=== PATIENT | male | born 1980 | race Caucasian/White ===

== ENCOUNTER 2016-09-11 13:16 | Emergency (ER) | payer SELFPAY ==
[2016-09-11 13:23] VITALS: BP 123/89
[2016-09-11] MEDS ORDERED: EPINEPHRINE INJ/PF 1 MG/1 ML AMPULE SUBCUT PRN (13:26)
[2016-09-11] MEDS ORDERED: FAMOTIDINE 20 MG TABLET PO ONE (13:27)
[2016-09-11] MEDS ORDERED: DIPHENHYDRAMINE HCL 50 MG CAPSULE PO ONE (13:27)
--- NOTE | 2016-09-11 13:31 | ER Document Report ---
ED Medical Screen (RME) - General Chief Complaint: Allergic Reaction Stated Complaint: POSSIBLE ALLERGIC REACTION TO BEES Notes: This 36-year-old male patient reports being stung several times by yellow jackets or wasps about 45 minutes prior to arrival. He is complaining of itching all over with red rash. There is no shortness of breath. He took a Vicodin for his back pain shortly before he was stung. I have greeted and performed a rapid initial assessment of this patient. A comprehensive ED assessment and evaluation of the patient, analysis of test results and completion of the medical decision making process will be conducted by additional ED providers. TRAVEL OUTSIDE OF THE [place] IN LAST 30 DAYS: No - Related Data Allergies/Adverse Reactions: No Known Allergies Allergy (Verified 09/11/16 13:19) Home Medications: Current Home Medications No Home Medications 09/11/16 [History] Past Medical History Renal/ Medical History: Denies: Hx Peritoneal Dialysis Skin Medical History: Reports Hx Eczema - Immunizations Hx Diphtheria, Pertussis, Tetanus Vaccination: No Physical Exam - Vital signs Vitals: Temp Pulse Resp BP Pulse Ox 97.6 F 80 16 123/89 H 100 09/11/16 13:19 09/11/16 13:19 09/11/16 13:19 09/11/16 13:19 09/11/16 13:19 Course - Vital Signs Vital signs: Temp Pulse Resp BP Pulse Ox 97.6 F 80 16 123/89 H 100 09/11/16 13:19 09/11/16 13:19 09/11/16 13:19 09/11/16 13:19 09/11/16 13:19 Doctor's Discharge - Discharge Clinical Impression: Allergic reaction to bee sting Condition: Stable Disposition: HOME, SELF-CARE Additional Instructions: Acute Allergic Reaction: Your symptoms are due to an allergic reaction. Allergy can cause hives, swelling of the hands, feet, and face, hoarseness, and difficulty swallowing or breathing. It may be due to exposure to medication, animal dander, foods, infection, or insect bites. Medication is a common cause, even when prior use of this same medication caused no problems. Acute treatment may include adrenalin and antihistamines. Usually, the specific allergic agent can't be identified unless repeated episodes occur. Home treatment includes the following: (1) Stop any suspicious medications. This will be discussed with you. (2) Oral antihistamines for the next four to five days. Example, diphenhydramine (Benadryl) every four hours. (3) You may also use cimetidine (Tagamet), ranitidine (Zantac), or famotidine (Pepcid) every four hours if diphenhydramine is not controlling itching and hives. (4) Avoid aspirin until the hives completely disappear. (5) Avoid hot bahs or showers until the hives are completely gone. Call the doctor if faintness, difficulty swallowing, tightness in the chest, or wheezing occurs.
--- NOTE | 2016-09-11 14:57 | ER Document Report ---
ED Allergic Reaction - General Chief Complaint: Allergic Reaction Stated Complaint: POSSIBLE ALLERGIC REACTION TO BEES Notes: 36-year-old male patient reports being stung several times on the upper extremities by yellow jackets about 45 minutes prior to arrival. He has some closing of the throat and voice is hoarse, he is itching and developing erythematous rash. He does have an EpiPen but has not used it. TRAVEL OUTSIDE OF THE [place] IN LAST 30 DAYS: No - Related Data Allergies/Adverse Reactions: No Known Allergies Allergy (Verified 09/11/16 13:19) Home Medications: Current Home Medications No Home Medications 09/11/16 [History] Past Medical History - General Information source: Patient, [facility] Records - Social History Smoking Status: Current Every Day Smoker Cigarette use (# per day): Yes Chew tobacco use (# tins/day): No Smoking Education Provided: No Frequency of alcohol use: Occasional Occupation: [employer] Lives with: Alone Family History: Reviewed & Not Pertinent Patient has suicidal ideation: No Patient has homicidal ideation: No - Past Medical History Cardiac Medical History: Reports: None Pulmonary Medical History: Reports: None EENT Medical History: Reports: None Neurological Medical History: Reports: None Endocrine Medical History: Reports: None Renal/ Medical History: Reports: None GI Medical History: Reports: None Musculoskeltal Medical History: Reports None Skin Medical History: Reports Hx Eczema Psychiatric Medical History: Reports: None Past Surgical History: Reports: Other - Colonoscopy with polyp removal - Immunizations Hx Diphtheria, Pertussis, Tetanus Vaccination: No Review of Systems - Review of Systems Constitutional: No symptoms reported EENT: No symptoms reported Cardiovascular: No symptoms reported Respiratory: No symptoms reported Gastrointestinal: No symptoms reported Genitourinary: No symptoms reported Musculoskeletal: No symptoms reported Skin: See HPI Hematologic/Lymphatic: No symptoms reported Neurological/Psychological: No symptoms reported Physical Exam - Vital signs Vitals: Temp Pulse Resp BP Pulse Ox 97.6 F 80 16 123/89 H 100 09/11/16 13:19 09/11/16 13:19 09/11/16 13:19 09/11/16 13:19 09/11/16 13:19 Interpretation: Normal - General General appearance: Alert, Anxious In distress: Mild Notes: Voice is a little hoarse. - HEENT Head: Normocephalic, Atraumatic Eyes: Normal Pupils: PERRL - Respiratory Respiratory status: No respiratory distress Breath sounds: Normal - Cardiovascular Rhythm: Regular - Abdominal Inspection: Other - Some urticaria and erythema to the anterior chest and abdomen - Back Back: Normal - Extremities General upper extremity: Other - Some erythema and urticaria to the volar forearms General lower extremity: Normal inspection - Neurological Neuro grossly intact: Yes - Psychological Associated symptoms: Normal affect, Normal mood Course - Vital Signs Vital signs: Temp Pulse Resp BP Pulse Ox 97.6 F 80 16 123/89 H 100 09/11/16 13:19 09/11/16 13:19 09/11/16 13:19 09/11/16 13:19 09/11/16 13:19 Discharge - Discharge Clinical Impression: Allergic reaction to bee sting Condition: Stable Disposition: HOME, SELF-CARE Additional Instructions: Acute Allergic Reaction: Your symptoms are due to an allergic reaction. Allergy can cause hives, swelling of the hands, feet, and face, hoarseness, and difficulty swallowing or breathing. It may be due to exposure to medication, animal dander, foods, infection, or insect bites. Medication is a common cause, even when prior use of this same medication caused no problems. Acute treatment may include adrenalin and antihistamines. Usually, the specific allergic agent can't be identified unless repeated episodes occur. Home treatment includes the following: (1) Stop any suspicious medications. This will be discussed with you. (2) Oral antihistamines for the next four to five days. Example, diphenhydramine (Benadryl) every four hours. (3) You may also use cimetidine (Tagamet), ranitidine (Zantac), or famotidine (Pepcid) every four hours if diphenhydramine is not controlling itching and hives. (4) Avoid aspirin until the hives completely disappear. (5) Avoid hot bahs or showers until the hives are completely gone. Call the doctor if faintness, difficulty swallowing, tightness in the chest, or wheezing occurs.
== END 2016-09-11 15:04 | disposition home or self-care (01) ==
LOC: ER 13:16
DX: T63.461A Toxic effect of venom of wasps, accidental (unintentional), initial encounter (principal); L50.8 Other urticaria; F17.210 Nicotine dependence, cigarettes, uncomplicated
CPT/HCPCS: 99283

== ENCOUNTER 2016-11-25 10:14 | Emergency (ER) | payer SELFPAY ==
[2016-11-25] MEDS ORDERED: OXYCODONE-ACETAMINOPHEN 5-325 MG TABLET PO ONE (11:17)
--- NOTE | 2016-11-25 11:19 | ER Document Report ---
HPI - HPI Patient complains to provider of: r lower back pain Onset: Other - 3 days ago Onset/Duration: Persistent Quality of pain: Achy Pain Level: 4 Context: Patient presents complaining of right lower back pain for the past 3 days. Patient states that he turned over in the bed this morning that aggravated his low back pain. Patient denies any injury. Patient denies any urinary symptoms. Associated Symptoms: Other - Lower back pain Exacerbated by: Movement Relieved by: Denies Similar symptoms previously: Yes Recently seen / treated by doctor: No - ROS ROS below otherwise negative: Yes Systems Reviewed and Negative: Yes All other systems reviewed and negative - CONSTITUTIONAL Constitutional: DENIES: Fever - URINARY Urinary: DENIES: Dysuria, Urgency, Frequency - MUSCULOSKELETAL Musculoskeletal: REPORTS: Back Pain - DERM Skin Color: Normal Past Medical History - General Information source: Patient - Social History Smoking Status: Current Every Day Smoker Frequency of alcohol use: Occasional Drug Abuse: None Occupation: [employer] Lives with: Family Family History: Reviewed & Not Pertinent Patient has suicidal ideation: No Renal/ Medical History: Denies: Hx Peritoneal Dialysis Skin Medical History: Reports Hx Eczema Surgical Hx: Negative Past Surgical History: Reports: Other - Colonoscopy with polyp removal - Immunizations Hx Diphtheria, Pertussis, Tetanus Vaccination: No Vertical Provider Document - CONSTITUTIONAL Agree With Documented VS: Yes Exam Limitations: No Limitations General Appearance: WD/WN, No Apparent Distress - INFECTION CONTROL TRAVEL OUTSIDE OF THE [place] IN LAST 30 DAYS: No - HEENT HEENT: Atraumatic, Normocephalic - NECK Neck: Normal Inspection, Supple - RESPIRATORY Respiratory: Breath Sounds Normal, No Respiratory Distress, Chest Non-Tender - CARDIOVASCULAR Cardiovascular: Regular Rate, Regular Rhythm, No Murmur - GI/ABDOMEN Gastrointestinal: Abdomen Soft - BACK Back: Abnormal Inspection - right thorocolumbar paraspinal tenderness, CVA Tenderness-Right - MUSCULOSKELETAL/EXTREMETIES Musculoskeletal/Extremeties: MAU ONEILL - NEURO Level of Consciousness: Awake, Alert, Appropriate Motor/Sensory: No Motor Deficit, No Sensory Deficit - DERM Integumentary: Warm, Dry, No Rash Course - Re-evaluation Re-evalutation: 11/25/16 12:16 The patient presents with low back pain without signs of spinal cord compression , cauda equina syndrome, infection, aneurysm, or other serious etiology. The patient is neurologically intact. Given the extremely risk of these diagnoses further testing and evaluation for these possibilities does not appear to be indicated at this time. Patient has been instructed to return if the symptoms worsen or change in any way. - Laboratory Laboratory results interpreted by me: 11/25/16 12:16 Labs- Entire Visit 11/25/16 11:33 Urine Color YELLOW Urine Appearance CLOUDY Urine pH 6.0 Ur Specific [place] 1.018 Urine Protein NEGATIVE Urine Glucose (UA) NEGATIVE Urine Ketones NEGATIVE Urine Blood NEGATIVE Urine Nitrite NEGATIVE Urine Bilirubin NEGATIVE Urine Urobilinogen NEGATIVE Ur Leukocyte Esterase NEGATIVE Urine WBC (Auto) 0 Urine RBC (Auto) 0 Urine Bacteria (Auto) TRACE Amorphous Sediment Auto TRACE Urine Mucus (Auto) RARE Urine Ascorbic Acid NEGATIVE Discharge - Discharge Clinical Impression: Low back pain Qualifiers: Chronicity: unspecified Back pain laterality: right Sciatica presence: without sciatica Qualified Code(s): M54.5 - Low back pain Condition: Stable Disposition: HOME, SELF-CARE Instructions: Warm Packs ([facility]), Ice Packs ([facility]), Oral Narcotic Medication ([facility]) , Low Back Pain ([facility]), Muscle Strain ([facility]) Additional Instructions: Return immediately for any new or worsening symptoms Followup with your primary care provider, call tomorrow to make a followup appointment Prescriptions: Cyclobenzaprine HCl [Flexeril 10 Mg Tablet] 10 mg PO TID #15 tablet Oxycodone HCl/Acetaminophen [Percocet 5-325 mg Tablet] 1 tab PO ASDIR PRN #15 tablet PRN Reason: Forms: Return to Work Referrals: [facility] [Provider Group] - Follow up in 3-5 days
[2016-11-25 11:58] LABS: AMORPHOUS SEDIMENT,URINE TRACE /HPF; APPEARANCE,URINE CLOUDY; BILIRUBIN,URINE NEGATIVE (NEGATIVE); GLUCOSE, URINE NEGATIVE (NEGATIVE); KETONES,URINE NEGATIVE (NEGATIVE); LEUKOCYTE ESTERASE,URINE NEGATIVE (NEGATIVE); NITRITE,URINE NEGATIVE (NEGATIVE); PROTEIN,URINE NEGATIVE (NEGATIVE); URINE SPECIFIC GRAVITY 1.018; UROBILINOGEN,URINE NEGATIVE mg/dL (<2.0)
[2016-11-25 12:26] VITALS: BP 113/82
== END 2016-11-25 12:24 | disposition home or self-care (01) ==
LOC: ER 10:14
DX: M54.5 Low back pain (principal); F17.200 Nicotine dependence, unspecified, uncomplicated
CPT/HCPCS: 81001; 99283

== ENCOUNTER 2018-07-04 12:34 | Emergency (ER) | payer SELFPAY ==
[2018-07-04 12:42] VITALS: BP 122/75
[2018-07-04] MEDS ORDERED: IPRATROPIUM/ALBUTEROL 0.5-2.5 MG/3 ML AMPUL NEB ONE (13:20)
--- NOTE | 2018-07-04 13:22 | ER Document Report ---
HPI - HPI Time Seen by Provider: 07/04/18 13:15 Pain Level: 2 Notes: Patient is a 37-year-old male with no significant past medical history aside from tobacco abuse who presents to the emergency department complaining of dry nonproductive cough that is worse in the evenings since getting over the flu recently. Patient states that this past week he had fever with congestion and a constant cough at that time. Patient states that the fever and most of the congestion has resolved, but he is left with a lingering dry cough. Patient states that he also sneezed hard today and felt a pain in the right lateral ribs. Patient states that coughing makes the pain worse. He otherwise is eating and drinking without difficulty. He is urinating normally and having normal bowel movements. Denies drug allergies. No history of asthma. Denies any prolonged immobilization, distance travel, recent surgery/trauma, personal cancer history, hormone use, or previous DVT/PE. Denies any headache, fever, neck pain, URI, sore throat, palpitations, syncope, shortness of breath, wheeze, dyspnea, abdominal pain, nausea/vomiting/diarrhea, urinary retention, dysuria, hematuria, or rash. - ROS Systems Reviewed and Negative: Yes All other systems reviewed and negative Past Medical History - Social History Smoking Status: Current Every Day Smoker Family History: Reviewed & Not Pertinent Renal/ Medical History: Denies: Hx Peritoneal Dialysis Skin Medical History: Reports Hx Eczema Past Surgical History: Reports: Other - Colonoscopy with polyp removal - Immunizations Hx Diphtheria, Pertussis, Tetanus Vaccination: No Vertical Provider Document - CONSTITUTIONAL Agree With Documented VS: Yes Notes: PHYSICAL EXAMINATION: GENERAL: Well-appearing, well-nourished and in no acute distress. HEAD: Atraumatic, normocephalic. EYES: Pupils equal round and reactive to light, extraocular movements intact, sclera anicteric, conjunctiva are normal. ENT: Nares patent and without discharge. oropharynx clear without exudates. No tonsilar hypertrophy or erythema. Moist mucous membranes. NECK: Normal range of motion, supple without lymphadenopathy Chest: + reproducible tenderness to palp rt lateral rib near R5 approx and reproduced by ROM at the shoulder. LUNGS: Wheeze in the rt lung, no retractions. HEART: Regular rate and rhythm without murmurs, rubs, gallops. ABDOMEN: Soft, nontender, nondistended abdomen. No guarding, no rebound. No masses appreciated. Normal bowel sounds present. No CVA tenderness bilaterally. Musculoskeletal: FROM to passive/active. Strength 5+/5. Extremities: No cyanosis, clubbing, or edema b/l. Peripheral pulses 2+. Capillary refill less than 3 seconds. NEUROLOGICAL: Normal speech, normal gait. PSYCH: Normal mood, normal affect. SKIN: Warm, Dry, normal turgor, no rashes or lesions noted. - INFECTION CONTROL TRAVEL OUTSIDE OF THE [place] IN LAST 30 DAYS: No Course - Re-evaluation Re-evalutation: 07/04/18 13:22 Pt declines anything involving a needle. CXR pending. Duoneb ordered. 07/04/18 13:56 Patient is an afebrile, well-hydrated, 37-year-old male who presents the emergency with a cough that I suspect to be viral in a posterior right rib fracture. Vitals are acceptable without significant tachycardia, tachypnea, or hypoxia. See x-ray result. No further labs or imaging warranted at this time. Patient is nontoxic-appearing and is tolerating p.o. without difficulty. Patient did have some wheezing on exam, but was improved with a DuoNeb. Low suspicion for any ACS, PE, pneumothorax, pericarditis, dissection, respiratory compromise, severe dehydration, sepsis, meningitis, or other systemic emergent condition at this time. Patient is aware that this condition can change from initial presentation and he needs to monitor symptoms closely and seek medical attention for any acute changes. I will send him home with a prescription for Tessalon Perles as well as a [employer] dispense pack. Recommend conservative measures for symptoms. Recheck with your PCM in 3-5 days. Return to the ED with any worsening/concerning symptoms otherwise as reviewed in discharge. Patient is in agreement. - Vital Signs Vital signs: Temp Pulse Resp BP Pulse Ox 98.2 F 72 18 122/75 100 07/04/18 12:40 07/04/18 12:40 07/04/18 12:40 07/04/18 12:40 07/04/18 12:40 Discharge - Discharge Clinical Impression: Cough Right rib fracture Qualifiers: Encounter type: initial encounter Rib fracture type: single rib Fracture type: closed Qualified Code(s): S22.31XA - Fracture of one rib, right side, initial encounter for closed fracture Condition: Stable Disposition: HOME, SELF-CARE Instructions: Rib Injuries and Fractures ([facility]) Additional Instructions: Maintain adequate fluid intake Take meds as directed tylenol/ibuprofen as needed over the counter cold medication as needed for symptoms Humidified air may help Wash your hands regularly Wear a mask when coughing F/u: with your PCM in 3-5 days for a recheck Return to the ED with any fever, worsening pain, chest pain, palpitations, syncope, worsening BRADLEY, neck pain/stiffness, shortness of breath, wheezing, drooling, trouble swallowing/breathing, abdominal pain, n/v/d, rash, or worsening/concerning symptoms otherwise. Prescriptions: Benzonatate [Tessalon Perle 100 mg Capsule] 100 mg PO Q8HP PRN #15 cap PRN Reason: Referrals: [facility] [Provider Group] - Follow up as needed [facility] [Provider Group] - Follow up as needed
--- NOTE | 2018-07-04 13:41 | RADIOLOGY REPORT (SQ) ---
EXAM DESCRIPTION: RIBS RIGHT W/PA CHEST COMPLETED DATE/TIME: 07/04/2018 1:17 pm REASON FOR STUDY: cough, rt rib pain after coughing COMPARISON: None. TECHNIQUE: Frontal view of the chest and additional views of the right ribs acquired. NUMBER OF VIEWS: Three view. LIMITATIONS: None. FINDINGS: FRONTAL CXR: No pneumothorax. No pleural effusion. No atelectasis or infiltrates. RIBS: Fracture right 7th posterior rib. OTHER: No other significant finding. IMPRESSION: Right posterior rib fracture. No pulmonary contusion or pneumothorax. COMMENT: SITE OF TRAUMA/COMPLAINT MARKED/STAMP COMPLETED: NO. TECHNICAL DOCUMENTATION: JOB ID: [id number] [employer]- All Rights Reserved Reading location - IP/workstation name: [email or web address]
[2018-07-04] MEDS ORDERED: HYDROCODONE/ACETAMINOPHEN 5-325 MG (6 TAB/ER DISP) PO PRN (13:59)
[2018-07-04] MEDS ORDERED: ALBUTEROL SULFATE HFA (90 MCG/PUFF) 8 GM MDI (1 MDI/ER DISP) IH ONE (14:01)
== END 2018-07-04 14:18 | disposition home or self-care (01) ==
LOC: ER 12:34
DX: S22.31XA Fracture of one rib, right side, initial encounter for closed fracture (principal); R05 Cough; R07.81 Pleurodynia; X58.XXXA Exposure to other specified factors, initial encounter; F17.200 Nicotine dependence, unspecified, uncomplicated
CPT/HCPCS: 94640; 99283; 71101; J3490; J7620

== ENCOUNTER 2018-08-17 14:59 | Emergency (ER) | payer SELFPAY ==
[2018-08-17] MEDS ORDERED: NORMAL SALINE 1000 ML 1,000 ML IV ONE (15:32)
--- NOTE | 2018-08-17 15:42 | ER Document Report ---
ED General - General Chief Complaint: Possible Overdose Stated Complaint: POSSIBLE OVERDOSE Time Seen by Provider: 08/17/18 15:15 TRAVEL OUTSIDE OF THE [place] IN LAST 30 DAYS: No - HPI Notes: Patient presents the emergency department for evaluation. He was concerned that something was "slipped into his drink." He states he had a friend contact him in regards to some auto repair. The patient went to fix this car, negotiated a paulson with a gentleman for the labor he was to do. He was then left alone with this person. He states he is unsure as to whether or not he drank 1 or more beers. He states the next thing he knew he was in bed at home. It was 2 PM and he was still sleeping. His significant other had trouble arousing him, and when he was speaking he was slurring his words. He states he just feels achy all over. He has no recollection of any of the other events since last night. He denies a headache, but states that it "hurts to think." - Related Data Allergies/Adverse Reactions: No Known Allergies Allergy (Verified 08/17/18 15:03) Past Medical History - General Information source: Patient - Social History Smoking Status: Current Every Day Smoker Frequency of alcohol use: Heavy - States he has recently joined [employer], but admits to easily drinking 12 beers daily prior to the last week. Drug Abuse: Marijuana Family History: Reviewed & Not Pertinent Patient has suicidal ideation: No Patient has homicidal ideation: No Renal/ Medical History: Denies: Hx Peritoneal Dialysis Skin Medical History: Reports Hx Eczema Past Surgical History: Reports: Other - Colonoscopy with polyp removal - Immunizations Hx Diphtheria, Pertussis, Tetanus Vaccination: No Review of Systems - Review of Systems Constitutional: Malaise, Weakness EENT: No symptoms reported Cardiovascular: No symptoms reported Respiratory: No symptoms reported Gastrointestinal: Nausea. denies: Vomiting Genitourinary: No symptoms reported Musculoskeletal: See HPI Skin: No symptoms reported Neurological/Psychological: No symptoms reported Physical Exam - Vital signs Vitals: Temp Pulse Resp BP Pulse Ox 97.5 F 65 16 108/62 98 08/17/18 15:10 08/17/18 15:10 08/17/18 15:10 08/17/18 15:10 08/17/18 15:10 - Notes Notes: Moderately disheveled 38-year-old male, appears his stated age, no acute distress. Head is normocephalic and appears atraumatic. Pupils are equal, round, reactive to light. Oral mucosa is moist. Neck is supple, no meningismus or adenopathy palpated. Heart is regular rate and rhythm, lungs are clear to auscultation bilaterally. Chest wall is nontender and chest wall excursion is equal. Abdomen is soft, nontender, normoactive bowel sounds. Extremities without cyanosis or clubbing. Patient is awake, slightly drowsy. He is slow to answer questions but answers them appropriately. Cranial nerves II through XII are grossly intact without focal neurological deficits. Strength is 4+ out of 5 bilateral upper and lower extremities. Reflexes are brisk and symmetrical. Sensation is intact. Intact finger nose finger, rapid altering movements, [id number]. Course - Re-evaluation Re-evalutation: 08/17/18 19:06 Patient presented to the emergency department for evaluation. Upon initial arrival he was slightly drowsy but appropriate, no focal neurological deficits. Because he was unable to give me a history of what it happened to the head was ordered, as well as lab work and other imaging. Laboratory investigation was s ignificant for a toxicology screen positive for methamphetamines, benzodiazepines, THC. CT scan of the head was unremarkable. Patient was given IV fluids. He became more alert throughout the course of his stay. At this point I am unsure as to whether or not the substances in his urine were respo nsible for his altered mental status and increased drowsiness. On further questioning the patient did admit to sleeping at his mistress's house last night. It was his that was present here. I am unsure as to whether or not the patient is being entirely forthcoming regarding this incident. In any case his vitals are stable. He is awake and alert. I have no other significant positive findings. We will discharge him to home. He is strongly encouraged to follow-up with primary care. He is to return to the emergency department with worsening or new concerning symptoms of any sort. - Vital Signs Vital signs: Temp Pulse Resp BP Pulse Ox 97.5 F 65 17 122/76 98 08/17/18 15:10 08/17/18 15:10 08/17/18 19:01 08/17/18 19:00 08/17/18 19:01 - Laboratory Result Diagrams: 08/17/18 15:45 08/17/18 15:45 Laboratory results interpreted by me: 08/17/18 08/17/18 15:45 17:20 Urine Ketones TRACE H Ur Leukocyte Esterase TRACE H Salicylates < 1.0 L Acetaminophen < 10 L - Diagnostic Test Radiology reviewed: Reports reviewed - Head CT and chest x-ray revealed nothing acute per radiology reports - EKG Interpretation by Me Additional EKG results interpreted by me: 08/17/18 19:08 Sinus mechanism with a rate of 79 bpm. Incomplete right bundle branch block. No acute ST changes concerning for ischemia or infarction. Discharge - Discharge Clinical Impression: Altered mental status Condition: Stable Disposition: HOME, SELF-CARE Instructions: Altered Mental Status ([facility]) Additional Instructions: Urine drug screen was positive for THC, amphetamines, and benzodiazepines today. Rest, avoid illicit drugs of all sort. Follow-up with primary care this week. Return to the emergency department with worsening or new concerning symptoms.
[2018-08-17 16:01] LABS: ABSOLUTE BASOPHILS # (AUTO) 0.1 10^3/uL (0.0-0.2); ABSOLUTE EOSINOPHILS # (AUTO) 0.1 10^3/uL (0.0-0.6); ABSOLUTE LYMPHOCYTES (AUTO) 2.5 10^3/uL (0.5-4.7); ABSOLUTE MONOCYTES (AUTO) 0.6 10^3/uL (0.1-1.4); ABSOLUTE NEUT (AUTO) 4.2 10^3/uL (1.7-8.2); BASOPHILS % (AUTO) 0.7 % (0-2); EOSINOPHILS % (AUTO) 1.3 % (0-6); HEMATOCRIT 43.5 % (37.9-51.0); HEMOGLOBIN 15.4 g/dL (13.5-17.0); LYMPHOCYTES % (AUTO) 33.3 % (13-45); MEAN CORPUSCULAR HEMOGLOBIN 32.8 pg (27.0-33.4); MEAN CORPUSCULAR HGB CONC 35.3 g/dL (32.0-36.0); MEAN CORPUSCULAR VOLUME 93 fl (80-97); PLATELET COUNT 326 10^3/uL (150-450); RED BLOOD COUNT 4.68 10^6/uL (4.35-5.55); RED CELL DISTRIBUTION WIDTH 12.8 % (11.5-14.0); SEGMENTED NEUTROPHILS % (AUTO) 56.7 % (42-78); TOTAL CELLS COUNTED % (AUTO) 100 %; WHITE BLOOD COUNT 7.4 10^3/uL (4.0-10.5)
--- NOTE | 2018-08-17 16:03 | RADIOLOGY REPORT (SQ) ---
EXAM DESCRIPTION: CHEST SINGLE VIEW COMPLETED DATE/TIME: 08/17/2018 3:58 pm REASON FOR STUDY: altered mental status, ?OD COMPARISON: 07/04/2018 EXAM PARAMETERS: NUMBER OF VIEWS: One view. TECHNIQUE: Single frontal radiographic view of the chest acquired. RADIATION DOSE: NA LIMITATIONS: None. FINDINGS: LUNGS AND PLEURA: No opacities, masses or pneumothorax. No pleural effusion. MEDIASTINUM AND HILAR STRUCTURES: No masses. Contour normal. HEART AND VASCULAR STRUCTURES: Heart normal in size. Normal vasculature. BONES: No acute findings. HARDWARE: None in the chest. OTHER: No other significant finding. IMPRESSION: NO ACUTE RADIOGRAPHIC FINDING IN THE CHEST. TECHNICAL DOCUMENTATION: JOB ID: [id number] [employer]- All Rights Reserved Reading location - IP/workstation name: [email or web address]
--- NOTE | 2018-08-17 16:11 | RADIOLOGY REPORT (SQ) ---
EXAM DESCRIPTION: CT HEAD WITHOUT COMPLETED DATE/TIME: 08/17/2018 4:03 pm REASON FOR STUDY: altered mental status COMPARISON: None. TECHNIQUE: Axial images acquired through the brain without intravenous contrast. Images reviewed wi th bone, brain and subdural windows. Additional sagittal and coronal reconstructions were generated. Images stored on PACS. All CT scanners at this facility use dose modulation, iterative reconstruction, and/or weight based d osing when appropriate to reduce radiation dose to as low as reasonably achievable (ALARA). [facility]: Dose Right [facility]: CareDose [facility]: Dose Right [facility]: Teradose 4D [facility]: Everplans RADIATION DOSE: CT Rad equipment meets quality standard of care and radiation dose reduction techniq ues were employed. CTDIvol: 53.2 mGy. DLP: 1070 mGy-cm. mGy. LIMITATIONS: None. FINDINGS: VENTRICLES: Normal size and contour. CEREBRUM: No masses. No hemorrhage. No midline shift. No evidence for acute infarction. Normal gra y/white matter differentiation. No areas of low density in the white matter. CEREBELLUM: No masses. No hemorrhage. No alteration of density. No evidence for acute infarction. EXTRAAXIAL SPACES: No fluid collections. No masses. ORBITS AND GLOBE: No intra- or extraconal masses. Normal contour of globe without masses. CALVARIUM: No fracture. PARANASAL SINUSES: No fluid or mucosal thickening. SOFT TISSUES: No mass or hematoma. OTHER: No other significant finding. IMPRESSION: NORMAL BRAIN CT WITHOUT CONTRAST. EVIDENCE OF ACUTE STROKE: NO. COMMENT: Quality ID # [id number]: Final reports with documentation of one or more dose reduction techniques (e.g., Automated exposure control, adjustment of the mA and/or kV according to patient size, use of iterative reconstruction technique) TECHNICAL DOCUMENTATION: JOB ID: [id number] [employer]- All Rights Reserved Reading location - IP/workstation name: [email or web address]
[2018-08-17 16:18] LABS: ALANINE AMINOTRANSFERASE 21 U/L (21-72); ALBUMIN 4.1 g/dL (3.5-5.0); ALKALINE PHOSPHATASE 88 U/L (38-126); ANION GAP 9 (5-19); ASPARTATE AMINO TRANSFERASE 22 U/L (17-59); BILIRUBIN,DIRECT 0.3 mg/dL (0.0-0.4); BILIRUBIN,TOTAL 0.9 mg/dL (0.2-1.3); BLOOD UREA NITROGEN 15 mg/dL (7-20); CALCIUM 9.9 mg/dL (8.4-10.2); CARBON DIOXIDE 23 mmol/L (22-30); CHLORIDE 106 mmol/L (98-107); GLUCOSE 88 mg/dL (75-110); POTASSIUM 4.5 mmol/L (3.6-5.0); SODIUM 137.6 mmol/L (137-145)
[2018-08-17 16:19] LABS: ACETAMINOPHEN < 10 ug/mL (10-30); ALCOHOL < 10 mg/dL (NONE DETECTED); SALICYLATE < 1.0 mg/dL (2.0-20.0)
[2018-08-17 17:35] LABS: APPEARANCE,URINE CLEAR; BILIRUBIN,URINE NEGATIVE (NEGATIVE); COLOR,URINE YELLOW; GLUCOSE, URINE NEGATIVE (NEGATIVE); KETONES,URINE TRACE mg/dL (NEGATIVE); LEUKOCYTE ESTERASE,URINE TRACE (NEGATIVE); NITRITE,URINE NEGATIVE (NEGATIVE); PROTEIN,URINE NEGATIVE (NEGATIVE); URINE SPECIFIC GRAVITY 1.019; UROBILINOGEN,URINE NEGATIVE mg/dL (<2.0)
[2018-08-17 17:51] LABS: URINE AMPHETAMINES SCREEN UNCONFIRMED POSITIVE; URINE BARBITURATES SCREEN NEGATIVE; URINE BENZODIAZEPINES SCREEN UNCONFIRMED POSITIVE; URINE COCAINE SCREEN NEGATIVE; URINE MARIJUANA (THC) SCREEN UNCONFIRMED POSITIVE; URINE METHADONE SCREEN NEGATIVE; URINE PHENCYCLIDINE SCREEN NEGATIVE
[2018-08-17 19:04] VITALS: BP 122/76
[2018-08-17] MEDS ORDERED: ONDANSETRON ODT 4 MG TAB (6 TAB/ER DISP) PO PRN (19:12)
--- NOTE | 2018-08-17 21:22 | EKG REPORT ---
SEVERITY:- BORDERLINE ECG - SINUS RHYTHM BORDERLINE PROLONGED QT INTERVAL : Confirmed by: Renetta Hodge MD 17-Aug-2018 21:21:37
== END 2018-08-17 19:57 | disposition home or self-care (01) ==
LOC: ER 14:59
DX: R40.0 Somnolence (principal); F17.200 Nicotine dependence, unspecified, uncomplicated; F12.10 Cannabis abuse, uncomplicated; I45.10 Unspecified right bundle-branch block; R52 Pain, unspecified; R53.81 Other malaise; R53.1 Weakness; R11.0 Nausea
CPT/HCPCS: 93005; 99284; 96360; 96361; 36415; 82553; 80307 ×4; 83735; 85025; 80053; 81001; 71045; 70450; 93010; J7030

== ENCOUNTER 2018-11-30 12:25 | Emergency (ER) | payer SELFPAY ==
[2018-11-30 13:49] LABS: ABSOLUTE BASOPHILS # (AUTO) 0.1 10^3/uL (0.0-0.2); ABSOLUTE LYMPHOCYTES (AUTO) 1.6 10^3/uL (0.5-4.7); ABSOLUTE MONOCYTES (AUTO) 0.8 10^3/uL (0.1-1.4); ABSOLUTE NEUT (AUTO) 6.6 10^3/uL (1.7-8.2); BASOPHILS % (AUTO) 0.8 % (0-2); EOSINOPHILS % (AUTO) 0.3 % (0-6); HEMATOCRIT 45.5 % (37.9-51.0); HEMOGLOBIN 15.8 g/dL (13.5-17.0); LYMPHOCYTES % (AUTO) 17.9 % (13-45); MEAN CORPUSCULAR HEMOGLOBIN 31.8 pg (27.0-33.4); MEAN CORPUSCULAR HGB CONC 34.8 g/dL (32.0-36.0); MEAN CORPUSCULAR VOLUME 92 fl (80-97); MONOCYTES % (AUTO) 8.6 % (3-13); PLATELET COUNT 301 10^3/uL (150-450); RED BLOOD COUNT 4.97 10^6/uL (4.35-5.55); RED CELL DISTRIBUTION WIDTH 12.9 % (11.5-14.0); SEGMENTED NEUTROPHILS % (AUTO) 72.4 % (42-78); TOTAL CELLS COUNTED % (AUTO) 100 %; WHITE BLOOD COUNT 9.1 10^3/uL (4.0-10.5)
[2018-11-30 13:53] LABS: INTERNATIONAL RATION (INR) 1.02; PROTHROMBIN TIME 13.4 SEC (11.4-15.4)
[2018-11-30 14:13] LABS: ALANINE AMINOTRANSFERASE 23 U/L (21-72); ALBUMIN 4.7 g/dL (3.5-5.0); ALKALINE PHOSPHATASE 97 U/L (38-126); ANION GAP 11 (5-19); ASPARTATE AMINO TRANSFERASE 28 U/L (17-59); BILIRUBIN,DIRECT 0.3 mg/dL (0.0-0.4); BILIRUBIN,TOTAL 1.3 mg/dL (0.2-1.3); BLOOD UREA NITROGEN 10 mg/dL (7-20); CALCIUM 9.7 mg/dL (8.4-10.2); CARBON DIOXIDE 25 mmol/L (22-30); CHLORIDE 103 mmol/L (98-107); CREATINE KINASE 147 U/L (55-170); GLUCOSE 90 mg/dL (75-110); POTASSIUM 4.2 mmol/L (3.6-5.0); SODIUM 139.2 mmol/L (137-145); TOTAL PROTEIN 7.6 g/dL (6.3-8.2)
--- NOTE | 2018-11-30 14:15 | RADIOLOGY REPORT (SQ) ---
EXAM DESCRIPTION: CHEST 2 VIEWS COMPLETED DATE/TIME: 11/30/2018 2:00 pm REASON FOR STUDY: Chest Pain COMPARISON: 08/17/2018 EXAM PARAMETERS: NUMBER OF VIEWS: two views TECHNIQUE: Digital Frontal and Lateral radiographic views of the chest acquired. RADIATION DOSE: NA LIMITATIONS: none FINDINGS: LUNGS AND PLEURA: No opacities, masses or pneumothorax. No pleural effusion. MEDIASTINUM AND HILAR STRUCTURES: No masses or contour abnormalities. HEART AND VASCULAR STRUCTURES: Heart normal size. No evidence for failure. BONES: No acute findings. HARDWARE: None in the chest. OTHER: No other significant finding. IMPRESSION: NO ACUTE RADIOGRAPHIC FINDING IN THE CHEST. TECHNICAL DOCUMENTATION: JOB ID: [id number] [employer]- All Rights Reserved Reading location - IP/workstation name: [email or web address]
[2018-11-30 14:26] LABS: CREATINE KINASE MB 0.74 ng/mL (<4.55); TROPONIN I < 0.012 ng/mL
--- NOTE | 2018-11-30 15:45 | ER Document Report ---
ED General - General Chief Complaint: Chest Pain Stated Complaint: LEFT SIDE PAIN Time Seen by Provider: 11/30/18 13:52 Notes: Patient is a 38-year-old male presents to the emergency department for generalized chest tightness in the left side of his chest radiating to his left arm. States he also had numbness feeling in left distal lower extremity. Patient states this feeling happened all of a sudden while he was driving. Patient's denying any history of anxiety or hyperventilating during the event. States he stopped his car and drink some water. States the pain then subsided. States he started driving again and the pain came back which is why he presents to the emergency room. Patient is currently denying any pain. He is denying any respiratory distress, diaphoresis during the event, nausea, vomiting, abdominal pain. Patient does admit to a pack a day smoking habit. Patient also admitting to his father passing away of a myocardial infarction before the age of 65 Past medical history: None Medications: None Allergies: None TRAVEL OUTSIDE OF THE [place] IN LAST 30 DAYS: No - Related Data Allergies/Adverse Reactions: No Known Allergies Allergy (Verified 11/30/18 12:26) Past Medical History - General Information source: Patient - Social History Smoking Status: Current Every Day Smoker Frequency of alcohol use: Social Drug Abuse: Marijuana Family History: Reviewed & Not Pertinent Patient has suicidal ideation: No Patient has homicidal ideation: No Renal/ Medical History: Denies: Hx Peritoneal Dialysis Skin Medical History: Reports Hx Eczema Psychiatric Medical History: Reports: Hx Attention Deficit Hyperactivity Disorder Past Surgical History: Reports: Other - Colonoscopy with polyp removal - Immunizations Hx Diphtheria, Pertussis, Tetanus Vaccination: No Review of Systems - Review of Systems Constitutional: denies: Fever EENT: No symptoms reported Cardiovascular: See HPI Respiratory: See HPI Gastrointestinal: No symptoms reported Genitourinary: No symptoms reported Male Genitourinary: No symptoms reported Musculoskeletal: No symptoms reported Skin: No symptoms reported Hematologic/Lymphatic: No symptoms reported Neurological/Psychological: See HPI Physical Exam - Vital signs Vitals: Temp Pulse Resp BP Pulse Ox 98.3 F 65 18 109/75 99 11/30/18 12:55 11/30/18 12:55 11/30/18 12:55 11/30/18 12:55 11/30/18 12:55 - Notes Notes: GENERAL: Alert, interacts well. No acute distress. HEAD: Normocephalic, atraumatic. EYES: Pupils equal, round, and reactive to light. Extraocular movements intact. ENT: Oral mucosa moist, tongue midline. NECK: Full range of motion. Supple. Trachea midline. LUNGS: Clear to auscultation bilaterally, no wheezes, rales, or rhonchi. No respiratory distress. HEART: Regular rate and rhythm. No murmur ABDOMEN: Soft, non-tender. Non-distended. Bowel sounds present in all 4 quadrants. EXTREMITIES: Moves all 4 extremities spontaneously. No edema, normal radial and dorsalis pedis pulses bilaterally. No cyanosis. BACK: no cervical, thoracic, lumbar midline tenderness. No saddle anesthesia, normal distal neurovascular exam. NEUROLOGICAL: Alert and oriented x3. Normal speech. cranial nerves II through XII grossly intact PSYCH: Normal affect, normal mood. SKIN: Warm, dry, normal turgor. No rashes or lesions noted. Course - Re-evaluation Re-evalutation: 11/30/18 15:42 Patient continues to deny any chest pain at this time. Patient states he wishes to leave the emergency department because he no longer has any chest pain. I discussed with patient at length my recommendations to get a delta troponin. Patient wishes to sign out of the emergency department AGAINST MEDICAL ADVICE. Patient's EKG shows a sinus rhythm rate of 75, QTC 438, no ST segment elevations or depressions noted. Initial troponin in the emergency department negative. Laboratory 11/30/18 11/30/18 11/30/18 13:32 13:32 13:32 WBC 9.1 RBC 4.97 Hgb 15.8 Hct 45.5 MCV 92 MCH 31.8 MCHC 34.8 RDW 12.9 Plt Count 301 Seg Neutrophils % 72.4 Lymphocytes % 17.9 Monocytes % 8.6 Eosinophils % 0.3 Basophils % 0.8 Absolute Neutrophils 6.6 Absolute Lymphocytes 1.6 Absolute Monocytes 0.8 Absolute Eosinophils 0.0 Absolute Basophils 0.1 PT 13.4 INR 1.02 Sodium 139.2 Potassium 4.2 Chloride 103 Carbon Dioxide 25 Anion Gap 11 BUN 10 Creatinine 0.89 Est GFR ( Amer) > 60 Est GFR (Non-Af Amer) > 60 Glucose 90 Calcium 9.7 Total Bilirubin 1.3 Direct Bilirubin 0.3 Neonat Total Bilirubin Not Reportable Neonat Direct Bilirubin Not Reportable Neonat Indirect Bili Not Reportable AST 28 ALT 23 Alkaline Phosphatase 97 Creatine Kinase 147 CK-MB (CK-2) Troponin I Total Protein 7.6 Albumin 4.7 11/30/18 13:32 WBC RBC Hgb Hct MCV MCH MCHC RDW Plt Count Seg Neutrophils % Lymphocytes % Monocytes % Eosinophils % Basophils % Absolute Neutrophils Absolute Lymphocytes Absolute Monocytes Absolute Eosinophils Absolute Basophils PT INR Sodium Potassium Chloride Carbon Dioxide Anion Gap BUN Creatinine Est GFR ( Amer) Est GFR (Non-Af Amer) Glucose Calcium Total Bilirubin Direct Bilirubin Neonat Total Bilirubin Neonat Direct Bilirubin Neonat Indirect Bili AST ALT Alkaline Phosphatase Creatine Kinase CK-MB (CK-2) 0.74 Troponin I < 0.012 Total Protein Albumin Again discussed with patient my recommendations for a delta troponin prior to discharge. Patient continues to state he needs to leave the emergency department. Patient is willing to sign out AGAINST MEDICAL ADVICE. Discussed close follow-up with [facility] or [facility] as patient is uninsured. - Vital Signs Vital signs: Temp Pulse Resp BP Pulse Ox 98.3 F 65 18 109/75 99 11/30/18 12:55 11/30/18 12:55 11/30/18 12:55 11/30/18 12:55 11/30/18 12:55 - Laboratory Result Diagrams: 11/30/18 13:32 11/30/18 13:32 Discharge - Discharge Clinical Impression: Left against medical advice Chest pain Qualifiers: Chest pain type: unspecified Qualified Code(s): R07.9 - Chest pain, unspecified Condition: Fair Disposition: AGAINST MEDICAL ADVICE Instructions: Chest Pain of Unclear Cause ([facility]) Additional Instructions: As we discussed you are leaving the emergency department AGAINST MEDICAL ADVICE. It is my recommendation that you stay to get a repeat cardiac enzyme drawn. Please make sure he follow-up with [facility], [facility] for continued care. Please return to the emergency department for any concerns. Referrals: [facility] [Provider Group] - Follow up as needed [facility] [Provider Group] - Follow up as needed
[2018-11-30 15:48] VITALS: BP 109/72
--- NOTE | 2018-11-30 23:59 | EKG REPORT ---
SEVERITY:- ABNORMAL ECG - SINUS RHYTHM LEFT ATRIAL ABNORMALITY : Confirmed by: Renetta Hodge MD 30-Nov-2018 23:58:25
== END 2018-11-30 15:52 | disposition left against medical advice (07) ==
LOC: ER 12:25
DX: R07.9 Chest pain, unspecified (principal); F17.200 Nicotine dependence, unspecified, uncomplicated
CPT/HCPCS: 36415; 71046; 80053; 82550; 82553; 84484; 85025; 85610; 93005; 93010; 99285

== ENCOUNTER 2019-11-28 12:18 | Emergency (ER) | payer SELFPAY ==
[2019-11-28 12:25] VITALS: BP 119/83
[2019-11-28] MEDS ORDERED: ONDANSETRON HCL INJ/PF 4 MG/2 ML SDV IV ONE (13:30)
[2019-11-28] MEDS ORDERED: NORMAL SALINE 1000 ML 1,000 ML IV ONE ×2 (13:31→14:56)
--- NOTE | 2019-11-28 13:37 | ER Document Report ---
ED Medical Screen (RME) - General Chief Complaint: Nausea/Vomiting Stated Complaint: MUSCLES LOCKING UP,LIGHTHEADED Time Seen by Provider: 11/28/19 13:24 Mode of Arrival: Ambulatory Information source: Patient TRAVEL OUTSIDE OF THE [place] IN LAST 30 DAYS: No - HPI Notes: 11/28/19 13:32 39-year-old male presents emergency room feeling like he is "going to pass out" after he drank a case of beer last night, states that 9 AM he felt dizzy, nausea, vomiting, muscle cramping and shortness of breath with generalized abdominal cramping. Patient states he had eaten anything today. Denies any chest pain. Patient states that he has drank in the past and has been however it is never felt as "that is I do right now". Denies any fevers or chills. States his symptoms are worse with time. Patient's blood sugar in triage was 85. I have greeted and performed a rapid initial assessment of this patient. A comprehensive ED assessment and evaluation of the patient, analysis of test results and completion of the medical decision making process will be conducted by additional ED providers. PHYSICAL EXAMINATION: GENERAL: Well-appearing, well-nourished and in mild distress. HEAD: Atraumatic, normocephalic. CV:tachycardia LUNGS: No respiratory distress Musculoskeletal: Normal range of motion NEUROLOGICAL: Normal speech, normal gait. SKIN: Warm, Dry, normal turgor, no rashes or lesions noted. 11/28/19 13:34 - Related Data Allergies/Adverse Reactions: No Known Allergies Allergy (Verified 11/28/19 13:20) Past Medical History - Social History Chew tobacco use (# tins/day): No Frequency of alcohol use: Social Drug Abuse: Marijuana Renal/ Medical History: Denies: Hx Peritoneal Dialysis Skin Medical History: Reports Hx Eczema Psychiatric Medical History: Reports: Hx Attention Deficit Hyperactivity Disorder Past Surgical History: Reports: Other - Colonoscopy with polyp removal - Immunizations Hx Diphtheria, Pertussis, Tetanus Vaccination: No Physical Exam - Vital signs Vitals: Temp Pulse Resp BP Pulse Ox 97.4 F 110 H 16 119/83 100 11/28/19 12:23 11/28/19 12:23 11/28/19 12:23 11/28/19 12:23 11/28/19 12:23 Course - Vital Signs Vital signs: Temp Pulse Resp BP Pulse Ox 97.4 F 110 H 16 119/83 100 11/28/19 12:23 11/28/19 12:23 11/28/19 12:23 11/28/19 12:23 11/28/19 12:23
[2019-11-28 14:24] LABS: ABSOLUTE BASOPHILS # (AUTO) 0.1 10^3/uL (0.0-0.2); ABSOLUTE LYMPHOCYTES (AUTO) 1.2 10^3/uL (0.5-4.7); ABSOLUTE MONOCYTES (AUTO) 0.9 10^3/uL (0.1-1.4); ABSOLUTE NEUT (AUTO) 12.1 10^3/uL (1.7-8.2); BASOPHILS % (AUTO) 0.5 % (0-2); EOSINOPHILS % (AUTO) 0.1 % (0-6); HEMATOCRIT 47.4 % (37.9-51.0); HEMOGLOBIN 16.7 g/dL (13.5-17.0); LYMPHOCYTES % (AUTO) 8.2 % (13-45); MEAN CORPUSCULAR HEMOGLOBIN 33.3 pg (27.0-33.4); MEAN CORPUSCULAR HGB CONC 35.2 g/dL (32.0-36.0); MEAN CORPUSCULAR VOLUME 95 fl (80-97); MONOCYTES % (AUTO) 6.2 % (3-13); PLATELET COUNT 339 10^3/uL (150-450); RED BLOOD COUNT 5.01 10^6/uL (4.35-5.55); RED CELL DISTRIBUTION WIDTH 13.5 % (11.5-14.0); TOTAL CELLS COUNTED % (AUTO) 100 %; WHITE BLOOD COUNT 14.2 10^3/uL (4.0-10.5)
[2019-11-28 14:47] LABS: ALBUMIN 4.7 g/dL (3.5-5.0); ALCOHOL 30 mg/dL (NONE DETECTED); ALKALINE PHOSPHATASE 132 U/L (38-126); ANION GAP 12 (5-19); ASPARTATE AMINO TRANSFERASE 29 U/L (17-59); BILIRUBIN,TOTAL 0.5 mg/dL (0.2-1.3); BLOOD UREA NITROGEN 9 mg/dL (7-20); CALCIUM 9.5 mg/dL (8.4-10.2); CARBON DIOXIDE 23 mmol/L (22-30); CHLORIDE 104 mmol/L (98-107); CREATINE KINASE 126 U/L (55-170); GLUCOSE 97 mg/dL (75-110); POTASSIUM 4.4 mmol/L (3.6-5.0); TOTAL PROTEIN 7.8 g/dL (6.3-8.2)
[2019-11-28 14:48] LABS: C-REACTIVE PROTEIN < 5.0 mg/L (<10.0)
--- NOTE | 2019-11-28 15:26 | RADIOLOGY REPORT (SQ) ---
EXAM DESCRIPTION: CHEST SINGLE VIEW IMAGES COMPLETED DATE/TIME: 11/28/2019 3:10 pm REASON FOR STUDY: epigastric pain, sob COMPARISON: 11/30/2018 EXAM PARAMETERS: NUMBER OF VIEWS: One view. TECHNIQUE: Single frontal radiographic view of the chest acquired. RADIATION DOSE: NA LIMITATIONS: None. FINDINGS: LUNGS AND PLEURA: No opacities, masses or pneumothorax. No pleural effusion. MEDIASTINUM AND HILAR STRUCTURES: No masses. Contour normal. HEART AND VASCULAR STRUCTURES: Heart normal in size. Normal vasculature. BONES: No acute findings. HARDWARE: None in the chest. OTHER: No other significant finding. IMPRESSION: NO ACUTE RADIOGRAPHIC FINDING IN THE CHEST. TECHNICAL DOCUMENTATION: JOB ID: [id number] 2010 [employer]- All Rights Reserved Reading location - IP/workstation name: [email or web address]
[2019-11-28 15:59] LABS: APPEARANCE,URINE SLIGHTLY-CLOUDY; BILIRUBIN,URINE NEGATIVE (NEGATIVE); COLOR,URINE YELLOW; GLUCOSE, URINE NEGATIVE (NEGATIVE); KETONES,URINE 20 mg/dL (NEGATIVE); LEUKOCYTE ESTERASE,URINE NEGATIVE (NEGATIVE); NITRITE,URINE NEGATIVE (NEGATIVE); PROTEIN,URINE 100 mg/dL (NEGATIVE); URINE SPECIFIC GRAVITY 1.025; UROBILINOGEN,URINE NEGATIVE mg/dL (<2.0)
[2019-11-28] MEDS ORDERED: DEXTROSE 50%-WATER 25 GM/50 ML DISP.SYRIN IV ONE (16:07)
--- NOTE | 2019-11-28 16:18 | ER Document Report ---
ED General - General Chief Complaint: Nausea/Vomiting Stated Complaint: MUSCLES LOCKING UP,LIGHTHEADED Time Seen by Provider: 11/28/19 13:24 Mode of Arrival: Ambulatory TRAVEL OUTSIDE OF THE [place] IN LAST 30 DAYS: No - HPI Patient complains to provider of: Nausea, lightheaded Notes: Patient presents waking up this morning profoundly nauseous lightheaded after drinking a case of beer last night. Patient states he just feels terrible he is not sure what is wrong with him. Says his muscles are locked up. Has not been able to eat secondary to profound nausea. - Related Data Allergies/Adverse Reactions: No Known Allergies Allergy (Verified 11/28/19 13:20) Past Medical History - General Information source: Patient - Social History Smoking Status: Never Smoker Chew tobacco use (# tins/day): No Frequency of alcohol use: Social Drug Abuse: Marijuana Family History: Reviewed & Not Pertinent Patient has homicidal ideation: No Renal/ Medical History: Denies: Hx Peritoneal Dialysis Skin Medical History: Reports Hx Eczema Psychiatric Medical History: Reports: Hx Attention Deficit Hyperactivity Di sorder Past Surgical History: Reports: Other - Colonoscopy with polyp removal - Immunizations Hx Diphtheria, Pertussis, Tetanus Vaccination: No Review of Systems - Review of Systems Notes: REVIEW OF SYSTEMS: CONSTITUTIONAL: -fevers, -chills EENT: -eye pain, -difficulty swallowing, -nasal congestion CARDIOVASCULAR: -chest pain, -syncope. RESPIRATORY: -cough, -SOB GASTROINTESTINAL: -abdominal pain, positive for nausea GENITOURINARY: -dysuria, -hematuria MUSCULOSKELETAL: -back pain, -neck pain SKIN: -rash or skin lesions. HEMATOLOGIC: -easy bruising or bleeding. LYMPHATIC: -swollen, enlarged glands. NEUROLOGICAL: -altered mental status or loss of consciousness, -headache, - neurologic symptoms PSYCHIATRIC: -anxiety, -depression. ALL OTHER SYSTEMS REVIEWED AND NEGATIVE. Physical Exam - Vital signs Vitals: Temp Pulse Resp BP Pulse Ox 97.4 F 110 H 16 119/83 100 11/28/19 12:23 11/28/19 12:23 11/28/19 12:23 11/28/19 12:23 11/28/19 12:23 - Notes Notes: PHYSICAL EXAMINATION: GENERAL: Well-appearing, well-nourished and in no acute distress. HEAD: Atraumatic, normocephalic. EYES: Pupils equal round, sclera anicteric, conjunctiva are normal. ENT: Surgical mask in place. NECK: Normal range of motion, LUNGS: No respiratory Distress, normal chest rise EXTREMITIES: Normal range of motion, No cyanosis. NEUROLOGICAL: Cranial nerves grossly intact. Normal speech, PSYCH: Normal mood, normal affect. SKIN: Warm, Dry, Course - Re-evaluation Re-evalutation: 11/28/19 16:15 Appearing male no acute distress presents after drinking heavily last night. Patient states he drinks every day doing 4-5 beers but last night had a "big night". Drinking a case of beer. He has ketones in his urine. Preserve renal function and normal electrolytes. Patient given 2 L fluid resuscitation, amp of D50. Antiemetics. Patient feeling markedly improved. Patient be discharged home encouraged follow-up PCP return if any changes. - Vital Signs Vital signs: Temp Pulse Resp BP Pulse Ox 97.4 F 110 H 16 119/83 100 11/28/19 12:23 11/28/19 12:23 11/28/19 12:23 11/28/19 12:23 11/28/19 12:23 - Laboratory Result Diagrams: 11/28/19 14:05 11/28/19 14:05 Laboratory results interpreted by me: 11/28/19 11/28/19 11/28/19 14:05 14:05 15:30 WBC 14.2 H Lymph % (Auto) 8.2 L Absolute Neuts (auto) 12.1 H Seg Neutrophils % 85.0 H Alkaline Phosphatase 132 H Urine Protein 100 H Urine Ketones 20 H Discharge - Discharge Clinical Impression: Alcohol abuse Hangover Qualifiers: Complication of substance-induced condition: uncomplicated Qualified Code(s): F10.120 - Alcohol abuse with intoxication, uncomplicated Condition: Stable Disposition: HOME, SELF-CARE Instructions: Antinausea Medication ([facility]) Additional Instructions: Follow-up PCP, return if anything changes
--- NOTE | 2019-11-28 18:00 | EKG REPORT ---
SEVERITY:- NORMAL ECG - SINUS RHYTHM : Confirmed by: Ez Buitrago MD 28-Nov-2019 17:59:51
== END 2019-11-28 16:50 | disposition home or self-care (01) ==
LOC: ER 12:18
DX: F10.120 Alcohol abuse with intoxication, uncomplicated (principal); F12.10 Cannabis abuse, uncomplicated; R29.898 Other symptoms and signs involving the musculoskeletal system; R11.2 Nausea with vomiting, unspecified; R42 Dizziness and giddiness
CPT/HCPCS: 93005; 99284; 96361; 96374; 96375; 36415; 82962; 80307; 82550; 83690; 85025; 86140; 80053; 81001; 84484; 71045; 93010; J3490; J2405; J7030